=== PATIENT | female | born 2000 | race Caucasian/White ===

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

== ENCOUNTER 2019-03-19 10:35 | Emergency (ER) | payer BC, OTHER ==
--- NOTE | 2019-03-19 11:13 | EDM.PDOC ---
ED HPI GENERAL MEDICAL PROBLEM - General Chief Complaint: Skin Complaint Stated Complaint: INFECTION Time Seen by Provider: 03/19/19 10:53 Source of Information: Reports: Patient History Limitations: Reports: No Limitations - History of Present Illness INITIAL COMMENTS - FREE TEXT/NARRATIVE: HISTORY AND PHYSICAL: History of present illness: Patient is a 18-year-old female who presents to the ED today with concern of right big toe pain after ingrown toenail removal from Dr. Pereyra, podiatry that was done 1 week ago. Patient states she has taken 4 doses of Augmentin that was given by Dr. Pereyra 2 days ago at an appointment with him. Patient states yesterday she had some drainage from the toe but she is not having any drainage today. Patient states the toe is more painful and bothersome to her over the past few days. She denies any associated symptoms or any other symptoms or concerns. Patient denies fever, chills, chest pain, shortness of breath, or cough. Denies headache, neck stiff ness, change in vision, syncope, or near syncope. Denies nausea, vomiting, abdominal pain, diarrhea, constipation, or dysuria. Has not noted any blood in urine or stool. Patient has been eating and drinking appropriately. Review of systems: As per history of present illness and below otherwise all systems reviewed and negative. Past medical history: As per history of present illness and as reviewed below otherwise noncontributory. Surgical history: As per history of present illness and as reviewed below otherwise noncontributory. Social history: See social history for further information Family history: As per history of present illness and as reviewed below otherwise noncontributory. Physical exam: General: Patient is alert, oriented, and in no acute distress. Patient sitting comfortably on exam table. HEENT: Atraumatic, normocephalic, pupils equal and reactive bilaterally, negative for conjunctival pallor or scleral icterus, mucous membranes moist, TMs normal bilaterally, throat clear, neck supple, nontender, trachea midline. No drooling or trismus noted. No meningeal signs. No hot potato voice noted. Lungs: Clear to auscultation, breath sounds equal bilaterally, chest nontender. Heart: S1S2, regular rate and rhythm without overt murmur Abdomen: Soft, nondistended, nontender. Negative for masses or hepatosplenomegaly. Negative for costovertebral tenderness. Pelvis: Stable nontender. Genitourinary: Deferred. Rectal: Deferred. Skin: Intact, warm, dry. No lesions or rashes noted. Extremities: Negative for cords or calf pain. Neurovascular unremarkable. There is a small scabbed over area on the medial side of the right big toenail with a mild amount of erythema surrounding this area. There is no purulent drainage or pus coming from the wound and not warm to the touch. Patient has full range of motion of complete digits of the right lower extremity with capillary refill less than 2 seconds. Neuro: Awake, alert, oriented. Cranial nerves II through XII unremarkable. Cerebellum unremarkable. Motor and sensory unremarkable throughout. Exam nonfocal. Notes: I did call and speak to Dr. Sanchez who said that he saw patient 2 days ago in his clinic and it looked like she had a slight infection starting of her toe. Dr. Sanchez states he started her on Augmentin at that time. Dr. Sanchez states he removed the ingrown part of her toe and applied acid to the area to prevent regrowth of the nail. Voices understanding and is agreeable to plan of care. Denies any further questions or concerns at this time. Diagnostics: CBC, CMP, Foot XR Therapeutics: Toradol, Rocephin Prescription: Bactrim DS, Diclofenac Impression: Toe pain, right big toe H/O toenail removal, right big toe Plan: 1. You can alternate ibuprofen and Tylenol as directed for pain and discomfort. Take medication as prescribed. Stop Augmentin that has been prescribed to you prior. 2. Follow-up with Dr. Sanchez as scheduled and as discussed. Return to the ED as needed and as discussed. Definitive disposition and diagnosis as appropriate pending reevaluation and review of above. right great toe Pain Score (Numeric/FACES): 6 - Related Data Allergies Allergy/AdvReac Type Severity Reaction Status Date / Time No Known Allergies Allergy Verified 03/19/19 10:47 Home Meds: Home Meds Norethindrone AC-Eth Estradiol [Microgestin 21 1-20 Tablet] 1 tab PO DAILY 07/19 [History] Amoxicillin 500 mg PO BID 03/19/19 [History] Past Medical History - Past Health History Medical/Surgical History: Denies Medical/Surgical History Other HEENT History: wears glasses Cardiovascular History: Reports: None Respiratory History: Reports: None Gastrointestinal History: Reports: None Genitourinary History: Reports: None 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 Musculoskeletal History: Reports: None Neurological History: Reports: Headaches, Chronic Psychiatric History: Reports: None Endocrine/Metabolic History: Reports: None Hematologic History: Reports: None Immunologic History: Reports: None Oncologic (Cancer) History: Reports: None Dermatologic History: Reports: None - Past Surgical History Head Surgeries/Procedures: Reports: None HEENT Surgical History: Reports: Adenoidectomy, Tonsillectomy Cardiovascular Surgical History: Reports: None GI Surgical History: Reports: None Female Surgical History: Reports: None Endocrine Surgical History: Reports: None Musculoskeletal Surgical History: Reports: None Oncologic Surgical History: Reports: None Dermatological Surgical History: Reports: None Social & Family History - Family History Family Medical History: Noncontributory - Tobacco Use Smoking Status *Q: Current Every Day Smoker Years of Tobacco use: 1 Packs/Tins Daily: 0.5 - Caffeine Use Caffeine Use: Reports: Soda - Recreational Drug Use Recreational Drug Use: No ED ROS GENERAL - Review of Systems Review Of Systems: ROS reveals no pertinent complaints other than HPI. ED EXAM, SKIN/RASH Exam: See Below (See dictation) Course - Vital Signs Last Recorded V/S: Last Vital Signs Temp 97.0 F 03/19/19 10:47 Pulse 91 03/19/19 10:47 Resp 18 03/19/19 10:47 BP 147/81 H 03/19/19 10:47 Pulse Ox 100 03/19/19 10:47 - Orders/Labs/Meds Labs: Laboratory Tests 03/19/19 03/19/19 Range/Units 11:09 11:09 WBC 7.14 (4.0-11.0) K/uL RBC 4.26 L (4.30-5.90) M/uL Hgb 12.0 (12.0-16.0) g/dL Hct 36.7 (36.0-46.0) % MCV 86.2 (80.0-98.0) fL MCH 28.2 (27.0-32.0) pg MCHC 32.7 (31.0-37.0) g/dL RDW Std Deviation 43.3 (28.0-62.0) fl RDW Coeff of Gracie 14 (11.0-15.0) % Plt Count 240 (150-400) K/uL MPV 10.30 (7.40-12.00) fL Neut % (Auto) 68.7 (48.0-80.0) % Lymph % (Auto) 21.3 (16.0-40.0) % Griggs % (Auto) 4.2 (0.0-15.0) % Eos % (Auto) 5.7 (0.0-7.0) % Baso % (Auto) 0.1 (0.0-1.5) % Neut # (Auto) 4.9 (1.4-5.7) K/uL Lymph # (Auto) 1.5 (0.6-2.4) K/uL Griggs # (Auto) 0.3 (0.0-0.8) K/uL Eos # (Auto) 0.4 (0.0-0.7) K/uL Baso # (Auto) 0.0 (0.0-0.1) K/uL Nucleated RBC % 0.0 /100WBC Nucleated RBCs # 0 K/uL Sodium 141 (136-145) mmol/L Potassium 4.0 (3.5-5.1) mmol/L Chloride 106 (98-107) mmol/L Carbon Dioxide 20.9 L (21.0-32.0) mmol/L BUN 7 (7.0-18.0) mg/dL Creatinine 1.1 H (0.6-1.0) mg/dL Est Cr Clr Drug Dosing 74.02 mL/min Estimated GFR (MDRD) > 60.0 ml/min Glucose 90 (74-106) mg/dL Calcium 9.2 (8.5-10.1) mg/dL Total Bilirubin 0.3 (0.2-1.0) mg/dL AST 20 (15-37) IU/L ALT 27 (14-63) IU/L Alkaline Phosphatase 67 (46-116) U/L Total Protein 7.7 (6.4-8.2) g/dL Albumin 3.7 (3.4-5.0) g/dL Globulin 4.0 (2.6-4.0) g/dL Albumin/Globulin Ratio 0.9 (0.9-1.6) Meds: Medications Discontinued Medications Generic Name Dose Route Start Last Admin Trade Name Freq PRVeronica Reason Stop Dose Admin Ceftriaxone Sodium 1 gm 03/19/19 11:24 03/19/19 11:36 Rocephin IM 03/19/19 11:25 1 gm ONETIME ONE Administration Lidocaine HCl Confirm 03/19/19 11:35 Xylocaine-Mpf 1% Administered 03/19/19 11:36 Dose 2 mls @ as directed .ROUTE .STK-MED ONE Ketorolac Tromethamine 60 mg 03/19/19 11:15 03/19/19 11:28 Toradol IM 03/19/19 11:16 60 mg ONETIME ONE Administration Lidocaine HCl 2 ml 03/19/19 11:33 03/19/19 11:42 Xylocaine-Mpf 1% INJECT 03/19/19 11:34 2 ml ONETIME ONE Administration Departure - Departure Time of Disposition: 11:54 Disposition: Home, Self-Care 01 Clinical Impression: History of ingrowing nail Toe pain Qualifiers: Laterality: right Qualified Code(s): M79.674 - Pain in right toe(s) - Discharge Information Referrals: Kailash De Guzman MD [Primary Care Provider] - Forms: ED Department Discharge Additional Instructions: The following information is given to patients seen in the emergency department who are being discharged to home. This information is to outline your options for follow-up care. We provide all patients seen in our emergency department with a follow-up referral. The need for follow-up, as well as the timing and circumstances, are variable depending upon the specifics of your emergency department visit. If you don't have a primary care physician on staff, we will provide you with a referral. We always advise you to contact your personal physician following an emergency department visit to inform them of the circumstance of the visit and for follow-up with them and/or the need for any referrals to a consulting specialist. The emergency department will also refer you to a specialist when appropriate. This referral assures that you have the opportunity for follow-up care with a specialist. All of these measure are taken in an effort to provide you with optimal care, which includes your follow-up. Under all circumstances we always encourage you to contact your private physician who remains a resource for coordinating your care. When calling for follow-up care, please make the office aware that this follow-up is from your recent emergency room visit. If for any reason you are refused follow-up, please contact the [facility] Emergency Department at and asked to speak to the emergency department charge nurse. [facility] Primary [facility] [address] [address] [address] [facility], [address] [place] [address] 1. You can alternate ibuprofen and Tylenol as directed for pain and discomfort. Take medication as prescribed. Stop Augmentin that has been prescribed to you prior. 2. Follow-up with Dr. Sanchez as scheduled and as discussed. Return to the ED as needed and as discussed.
[2019-03-19] MEDS ORDERED: Ketorolac 60 MG/2 ML SDV IM ONE (11:15)
[2019-03-19] MEDS ORDERED: cefTRIAXone 1 GM Vial IM ONE (11:24)
--- NOTE | 2019-03-19 11:27 | CR ---
HISTORY: Right great toe infection. TECHNIQUE: Two views of the right foot. COMPARISON: No prior. FINDINGS: There is no acute fracture. No bony destructive change to suggest osteomyelitis radiographically. No radiopaque foreign body or soft tissue gas. Type 2 navicular accessory ossification center is present. Joint spaces maintained. IMPRESSION: No bony destructive change to radiographically suggest osteomyelitis. No soft tissue gas or radiopaque foreign body. Dictated by Michael Alcazar MD @ 03/19/2019 11:26:32 AM Dictated by: Michael Alcazar MD @ 03/19/2019 11:26:36 (Electronically Signed)
[2019-03-19] MEDS ORDERED: Lidocaine 1% PF 2 ML SDV INJECT ONE (11:33)
[2019-03-19] MEDS ORDERED: Lidocaine 1% 2 ML ONE (11:35)
[2019-03-19 11:43] LABS: BLOOD UREA NITROGEN,BUN 7 mg/dL (7.0-18.0); CARBON DIOXIDE,CO2 20.9 mmol/L (21.0-32.0); CHLORIDE,CL 106 mmol/L (98-107); GLUCOSE RANDOM 90 mg/dL (74-106); SODIUM,NA 141 mmol/L (136-145)
[2019-03-19 12:06] VITALS: BP 114/59; PULSE 80
== END 2019-03-19 12:04 | disposition home or self-care (01) ==
LOC: MW.ED 10:35
DX: M79.674 Pain in right toe(s) (principal); F17.210 Nicotine dependence, cigarettes, uncomplicated; Z87.2 Personal history of diseases of the skin and subcutaneous tissue
CPT/HCPCS: 36415; 73620; 80053; 85025; 96372; 96374; 99284; J0696; J1885; J2001

== ENCOUNTER 2019-06-08 18:04 | Emergency (ER) | payer OTHER ==
[2019-06-08 18:17] VITALS: BP 114/78; PULSE 103
--- NOTE | 2019-06-08 18:22 | EDM.PDOC ---
ED HPI GENERAL MEDICAL PROBLEM - General Chief Complaint: General Stated Complaint: SICK Time Seen by Provider: 06/08/19 18:22 Source of Information: Reports: Patient History Limitations: Reports: No Limitations - History of Present Illness INITIAL COMMENTS - FREE TEXT/NARRATIVE: HISTORY AND PHYSICAL: History of present illness: Patient is a 18-year-old female presents to the ED with complaint of right shoulder and right knee pain. She states she inured her right shoulder while boxing a couple of weeks ago. She states she has seen Dr. Rivera and is suppose to get an MRI. She states she saw a chiropractor today and her shoulder pain is worse. She report she developed right knee pain just this afternoon. She denies injury to the knee. She states her toes this afternoon turned white, then red before return to normal color. She is taking tylenol #3 but states she does not feel well when she takes this. Review of systems: As per history of present illness and below otherwise all systems reviewed and negative. Past medical history: As per history of present illness and as reviewed below otherwise noncontributory. Surgical history: As per history of present illness and as reviewed below otherwise noncontributory. Social history: No reported history of drug or alcohol abuse. Family history: As per history of present illness and as reviewed below otherwise noncontributory. Physical exam: General: Patient sitting comfortably in no acute distress and nontoxic appearing HEENT: Atraumatic, normocephalic, pupils reactive, negative for conjunctival pallor or scleral icterus, mucous membranes moist, throat clear, neck supple, nontender, trachea midline. No meningeal signs. Lungs: Clear to auscultation, breath sounds equal bilaterally, chest nontender. Heart: S1S2, regular, negative for clicks, rubs, or overt murmur. Abdomen: Soft, nondistended, nontender. Negative for masses or hepatosplenomegaly. Negative for costovertebral tenderness. No rigidity, rebound , guarding. Pelvis: Stable nontender. Genitourinary: Deferred. Rectal: Deferred. Extremities: Pain to palpation along right supraspinatus and right anterior shoulder. Pain to palpation of right anterior knee. ROM normal. Atraumatic, negative for cords or calf pain. Neurovascular unremarkable. Neuro: Awake, alert, oriented. Cranial nerves II through XII unremarkable. Cerebellum unremarkable. Motor and sensory unremarkable throughout. Exam nonfocal. Notes: Diagnostics: none Therapeutics: none Prescriptions: Diclofenac Impression: Right shoulder pain, right knee pain Plan: Take diclofenac as instructed Follow up with orthopedics, please call the number provided to schedule an appointment Return to ED as needed as discussed Definitive disposition and diagnosis as appropriate pending reevaluation and review of above. Generalized Pain Score (Numeric/FACES): 8 - Related Data Allergies Allergy/AdvReac Type Severity Reaction Status Date / Time No Known Allergies Allergy Verified 06/08/19 18:13 Home Meds: Home Meds Norethindrone AC-Eth Estradiol [Microgestin 21 1-20 Tablet] 1 tab PO DAILY 07/19 [History] Acetaminophen with Codeine [Tylenol with Codeine #3 Tablet] 1 each PO ASDIRECTED PRN 06/08/19 [History] Diclofenac Sodium [Voltaren] 75 mg PO BIDMEALS #20 tab.cr 06/08/19 [Rx] Past Medical History - Past Health History Medical/Surgical History: Denies Medical/Surgical History Other HEENT History: wears glasses Cardiovascular History: Reports: None Respiratory History: Reports: None Gastrointestinal History: Reports: None Genitourinary History: Reports: None 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 Musculoskeletal History: Reports: None Neurological History: Reports: Headaches, Chronic Psychiatric History: Reports: None Endocrine/Metabolic History: Reports: None Hematologic History: Reports: None Immunologic History: Reports: None Oncologic (Cancer) History: Reports: None Dermatologic History: Reports: None - Infectious Disease History Infectious Disease History: Reports: None - Past Surgical History Head Surgeries/Procedures: Reports: None HEENT Surgical History: Reports: Adenoidectomy, Oral Surgery, Tonsillectomy Cardiovascular Surgical History: Reports: None GI Surgical History: Reports: None Female Surgical History: Reports: None Endocrine Surgical History: Reports: None Musculoskeletal Surgical History: Reports: None Oncologic Surgical History: Reports: None Dermatological Surgical History: Reports: None Social & Family History - Family History Family Medical History: Noncontributory - Caffeine Use Caffeine Use: Reports: Energy Drinks - Recreational Drug Use Recreational Drug Use: No ED ROS GENERAL - Review of Systems Review Of Systems: Comprehensive ROS is negative, except as noted in HPI. ED EXAM, GENERAL - Physical Exam Exam: See Below (see dictation) Course - Vital Signs Last Recorded V/S: Last Vital Signs Temp 98.3 F 06/08/19 18:14 Pulse 103 H 06/08/19 18:14 Resp 18 06/08/19 18:14 BP 114/78 06/08/19 18:14 Pulse Ox 99 06/08/19 18:14 Departure - Departure Time of Disposition: 18:40 Disposition: Home, Self-Care 01 Condition: Good Clinical Impression: Right shoulder pain, Right knee pain - Discharge Information Prescriptions: Diclofenac Sodium [Voltaren] 75 mg PO BIDMEALS #20 tab.cr Instructions: Shoulder Pain, [id number], Knee Pain, Adult, [id number] Referrals: Kailash De Guzman MD [Primary Care Provider] - Forms: ED Department Discharge Additional Instructions: The following information is given to patients seen in the emergency department who are being discharged to home. This information is to outline your options for follow-up care. We provide all patients seen in our emergency department with a follow-up referral. The need for follow-up, as well as the timing and circumstances, are variable depending upon the specifics of your emergency department visit. If you don't have a primary care physician on staff, we will provide you with a referral. We always advise you to contact your personal physician following an emergency department visit to inform them of the circumstance of the visit and for follow-up with them and/or the need for any referrals to a consulting specialist. The emergency department will also refer you to a specialist when appropriate. This referral assures that you have the opportunity for follow-up care with a specialist. All of these measure are taken in an effort to provide you with optimal care, which includes your follow-up. Under all circumstances we always encourage you to contact your private physician who remains a resource for coordinating your care. When calling for follow-up care, please make the office aware that this follow-up is from your recent emergency room visit. If for any reason you are refused follow-up, please contact the [facility] Emergency Department at and asked to speak to the emergency department charge nurse. [facility] Primary [facility] [address] [place] [id number] [facility] [address] [place] [address] [facility] Specialty Care - Orthopedic Clinic Professional Building [address] [place] [address], [address] [place] [address] Take diclofenac as instructed Follow up with orthopedics, please call the number provided to schedule an appointment Return to ED as needed as discussed Sepsis Event Note - Evaluation Sepsis Screening Result: No Definite Risk - Focused Exam Vital Signs: Vital Signs Temp Pulse Resp BP Pulse Ox 06/08/19 18:14 98.3 F 103 H 18 114/78 99 Date Exam was Performed: 06/08/19 Time Exam was Performed: 18:49
== END 2019-06-08 18:53 | disposition home or self-care (01) ==
LOC: MW.ED 18:04
DX: M25.511 Pain in right shoulder (principal); M25.561 Pain in right knee; Z98.890 Other specified postprocedural states
CPT/HCPCS: 99283

== ENCOUNTER 2020-01-18 10:53 | Day surgery (SDC) | payer OTHER ==
[~2020-01-18 10:53] MED LIST changes: -Bupivacaine 0.25%/EPINEPHrine 1:200,000 10 ML SDV INJECT ONE; +Lactated Ringers 1,000 ML IV SCH; +Midazolam 1 MG/ML 2 ML SDV ONE; +Propofol 200 MG/20 ML SDV ONE; +Sodium Chloride 0.9% 10 ML SDV IV PRN; +Sodium Chloride 0.9% 10 ML Syringe FLUSH PRN; +Sodium Chloride 0.9% 2.5 ML Syringe FLUSH PRN; +fentaNYL 100 MCG/2 ML SDV ONE
--- NOTE | 2020-01-18 11:40 | PCM.PREANE ---
Preanesthetic Assessment - Anesthesia/Transfusion/Family Hx Anesthesia History: Prior Anesthesia Without Reaction Family History of Anesthesia Reaction: No Transfusion History: No Prior Transfusion(s) Intubation History: Unknown - Review of Systems General: No Symptoms Pulmonary: No Symptoms Cardiovascular: No Symptoms Gastrointestinal: Abdominal Pain (epigastric), Hematochezia (intermittent) Neurological: No Symptoms Other: Reports: None - Physical Assessment Height: 5 ft 5 in Weight: 78.018 kg ASA Class: 2 Mental Status: Alert & Oriented x3 Airway Class: Mallampati = 2 Dentition: Reports: Normal Dentition Thyro-Mental Finger Breadths: 3 Mouth Opening Finger Breadths: 3 ROM/Head Extension: Full Lungs: Clear to Auscultation, Normal Respiratory Effort Cardiovascular: Regular Rate, Regular Rhythm - Lab Values: Laboratory Last Values Urine HCG, Qual NEGATIVE (NEGATIVE) 01/18/20 11:10 - Allergies Allergies/Adverse Reactions: Allergies Allergy/AdvReac Type Severity Reaction Status Date / Time No Known Allergies Allergy Verified 01/11/20 12:17 - Blood Blood Available: No - Anesthesia Plan Pre-Op Medication Ordered: None - Acknowledgements Anesthesia Type Planned: MAC Pt an Appropriate Candidate for the Planned Anesthesia: Yes Alternatives and Risks of Anesthesia Discussed w Pt/Guardian: Yes Pt/Guardian Understands and Agrees with Anesthesia Plan: Yes PreAnesthesia Questionnaire - Past Health History Medical/Surgical History: Denies Medical/Surgical History HEENT History: Reports: Other (See Below) Other HEENT History: wears glasses Cardiovascular History: Reports: None Respiratory History: Reports: None Gastrointestinal History: Reports: None Genitourinary History: Reports: None 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 Musculoskeletal History: Reports: None Other Musculoskeletal History: hx of fx right hand Neurological History: Reports: Headaches, Chronic Psychiatric History: Reports: None Endocrine/Metabolic History: Reports: None Hematologic History: Reports: None Immunologic History: Reports: None Oncologic (Cancer) History: Reports: None Dermatologic History: Reports: None - Infectious Disease History Infectious Disease History: Reports: None - Past Surgical History HEENT Surgical History: Reports: Adenoidectomy, Oral Surgery, Tonsillectomy Musculoskeletal Surgical History: Reports: None - SUBSTANCE USE Smoking Status *Q: Current Every Day Smoker Tobacco Use Within Last Twelve Months: Vaping Recreational Drug Use History: No - HOME MEDS Home Medications: Home Meds norethindrone ac-eth estradioL [Microgestin 21 1-20 Tablet] 1 tab PO DAILY 07/19/16 [History] Melatonin 5 mg PO BEDTIME 01/11/20 [History] - CURRENT (IN HOUSE) MEDS Current Meds: Current Medications Lactated Ringer's (Ringers, Lactated) 1,000 mls @ 125 mls/hr IV ASDIRECTED KARLY Sodium Chloride (Saline Flush) 10 ml FLUSH ASDIRECTED PRN PRN Reason: Keep Vein Open Sodium Chloride (Saline Flush) 2.5 ml FLUSH ASDIRECTED PRN PRN Reason: Keep Vein Open Sodium Chloride (Normal Saline) 10 ml IV ASDIRECTED PRN PRN Reason: IV Use Discontinued Medications Fentanyl (Sublimaze) Confirm Administered Dose 100 mcg .ROUTE .STK-MED ONE Stop: 01/18/20 07:36 Lidocaine HCl (Xylocaine-Mpf 1%) Confirm Administered Dose 5 ml .ROUTE .STK-MED ONE Stop: 01/18/20 07:36 Midazolam HCl (Versed 1 Mg/Ml) Confirm Administered Dose 2 mg .ROUTE .STK-MED ONE Stop: 01/18/20 07:36 Propofol (Diprivan 20 Ml) Confirm Administered Dose 200 mg .ROUTE .STK-MED ONE Stop: 01/18/20 07:36
[2020-01-18 13:51] VITALS: BP 123/80; PULSE 89
--- NOTE | 2020-01-18 13:56 | PCM.POSTAN ---
POST ANESTHESIA ASSESSMENT - MENTAL STATUS Mental Status: Alert, Oriented - VITAL SIGNS Vital Signs: Last Vital Signs Temp 36.7 C 01/18/20 13:39 Pulse 89 01/18/20 13:50 Resp 15 01/18/20 13:50 BP 123/80 01/18/20 13:50 Pulse Ox 97 01/18/20 13:50 - RESPIRATORY Respiratory Status: Respiratory Rate WNL, Airway Patent, O2 Saturation Stable - CARDIOVASCULAR CV Status: Pulse Rate WNL, Blood Pressure Stable - GASTROINTESTINAL GI Status: No Symptoms - PAIN Pain Score: 0 - POST OP HYDRATION Hydration Status: Adequate & Stable - OBSERVATIONS Free Text/Narrative:: No anesthesia problems
--- NOTE | 2020-01-18 14:11 | PCM48HPAN ---
Post Anesthesia Note - EVALUATION WITHIN 48HRS OF ANESTHETIC Vital Signs in Normal Range: Yes Patient Participated in Evaluation: Yes Respiratory Function Stable: Yes Airway Patent: Yes Cardiovascular Function Stable: Yes Hydration Status Stable: Yes Pain Control Satisfactory: Yes Nausea and Vomiting Control Satisfactory: Yes Mental Status Recovered: Yes Vital Signs: Last Vital Signs Temp 36.7 C 01/18/20 13:39 Pulse 89 01/18/20 13:50 Resp 15 01/18/20 13:50 BP 123/80 01/18/20 13:50 Pulse Ox 97 01/18/20 13:50 - COMMENTS/OBSERVATIONS Free Text/Narrative:: No anesthesia problems
--- NOTE | 2020-01-18 19:23 | OR ---
SURGEON: EMILY MUNOZ MD DATE OF PROCEDURE: 01/18/2020 PREOPERATIVE DIAGNOSIS: Abdominal pain. POSTOPERATIVE DIAGNOSIS: Abdominal pain. PROCEDURE PERFORMED: Diagnostic esophagogastroduodenoscopy with biopsies. PRIMARY SURGEON: Emily Munoz MD ANESTHESIA: MAC. INSTRUMENT USED: Olympus endoscope. EXTENT OF EXAM: To the second portion of duodenum. PREPARATION: Good. LIMITATIONS: None. INDICATIONS: The patient is a 19-year-old female who has been having postprandial abdominal pain. Recent HIDA scan showed a slightly lower than normal ejection fraction. However, the patient's symptoms did not seem to correlate 100% with biliary dyskinesia. The decision was made to first undergo an EGD to rule out any upper GI pathology prior to performing a cholecystectomy. The patient and I discussed the procedure; expected perioperative course; and risks including bleeding, infection, or perforation. The patient verbalized understanding and wishes to proceed. PROCEDURE IN DETAIL: The patient was brought into the endoscopy suite and placed in a beach chair position. A time-out was completed verifying the patient's name, age, date of , allergies, and procedure to be performed. A bite block was placed in the patient's mouth. Monitored anesthesia care was induced and continuous oxygen was provided via nasal cannula throughout the procedure. After adequate sedation was achieved, a well-lubricated endoscope was placed in the patient's mouth and advanced under direct visualization to the second portion of duodenum. This appeared normal and a photograph was taken. The scope was then fully withdrawn while examining the color, texture, anatomy, and integrity of the mucosa of the upper GI tract. The duodenum grossly appeared normal. A biopsy was taken in the first portion of the duodenum and sent to pathology. The scope was brought into the stomach and a photograph was taken of the pylorus and GE junction. Both appeared grossly normal. Biopsies were taken of the gastric antrum, body, and fundus and sent for histologic review and H. pylori testing. There was no evidence of gross inflammation or ulceration along the gastric mucosa. The scope was then brought into the distal esophagus. The Z-line appeared normal and a photograph was taken. The distal esophageal mucosa appeared healthy with no signs of esophagitis. A biopsy was taken 1 cm above the Z-line and sent to pathology, labeled as esophagus. The remainder of the esophageal mucosa was free of pathology. The scope was removed and the procedure terminated. The patient tolerated it well and was transferred to the PACU in stable condition. ENDOSCOPIC DIAGNOSIS: Abdominal pain. RECOMMENDATIONS: We will follow up on the results of our biopsies this week. If these are grossly normal, we will proceed with a laparoscopic cholecystectomy for biliary dyskinesia. MILADIS ARTIS /[id number]
== END 2020-01-18 14:20 | disposition home or self-care (01) ==
LOC: MW.SDS 10:53
PROVIDERS: ATTEND Surgery
DX: K29.00 Acute gastritis without bleeding (principal); K29.80 Duodenitis without bleeding; K29.50 Unspecified chronic gastritis without bleeding; G89.29 Other chronic pain; K21.0 Gastro-esophageal reflux disease with esophagitis; F17.290 Nicotine dependence, other tobacco product, uncomplicated; Z79.899 Other long term (current) drug therapy
CPT/HCPCS: 43239; 81025; 88305; 88312; J2001; J2250; J2704; J3010; J7120; 00731

== ENCOUNTER 2020-01-27 07:56 | Day surgery (SDC) | payer OTHER ==
[~2020-01-27 07:56] MED LIST changes: +Dexamethasone 4 MG/ML 5 ML MDV ONE; +HYDROmorphone 2 MG/ML Syringe ONE; +Ketamine 500 mg/10 ML MDV ONE; +Ketorolac 30 MG/ML SDV ONE; +Lidocaine 2% 5 ML SDV ONE; +Ondansetron 4 MG/2 ML SDV ONE; +Rocuronium Bromide 50 MG/5 ML Syringe ONE; +Sugammadex Sodium 200 MG/2 ML VIAL ONE; +ceFAZolin 2 GM in Premix Bag 1 BAG IV ONE; -fentaNYL 100 MCG/2 ML SDV ONE; +fentaNYL 250 MCG/5 ML SDV ONE
--- NOTE | 2020-01-27 08:20 | PCM.PREANE ---
Preanesthetic Assessment - Anesthesia/Transfusion/Family Hx Anesthesia History: Prior Anesthesia Without Reaction Family History of Anesthesia Reaction: No Transfusion History: No Prior Transfusion(s) Intubation History: Unknown - Review of Systems General: No Symptoms Pulmonary: No Symptoms Cardiovascular: No Symptoms Gastrointestinal: Abdominal Pain Neurological: No Symptoms Other: Reports: None - Physical Assessment Height: 5 ft 5 in Weight: 78.018 kg ASA Class: 2 Mental Status: Alert & Oriented x3 Airway Class: Mallampati = 2 Dentition: Reports: Normal Dentition Thyro-Mental Finger Breadths: 3 Mouth Opening Finger Breadths: 3 ROM/Head Extension: Full Lungs: Clear to Auscultation, Normal Respiratory Effort Cardiovascular: Regular Rate, Regular Rhythm - Allergies Allergies/Adverse Reactions: Allergies Allergy/AdvReac Type Severity Reaction Status Date / Time No Known Allergies Allergy Verified 01/21/20 12:38 - Blood Blood Available: No - Anesthesia Plan Pre-Op Medication Ordered: None - Acknowledgements Anesthesia Type Planned: General Anesthesia Pt an Appropriate Candidate for the Planned Anesthesia: Yes Alternatives and Risks of Anesthesia Discussed w Pt/Guardian: Yes Pt/Guardian Understands and Agrees with Anesthesia Plan: Yes PreAnesthesia Questionnaire - Past Health History Medical/Surgical History: Denies Medical/Surgical History HEENT History: Reports: Other (See Below) Other HEENT History: wears glasses Cardiovascular History: Reports: None Respiratory History: Reports: None Gastrointestinal History: Reports: Other (See Below) (cholecystitis) Genitourinary History: Reports: None 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: 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: 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 Musculoskeletal History: Reports: None Other Musculoskeletal History: hx of fx right hand Neurological History: Reports: Headaches, Chronic Psychiatric History: Reports: None Endocrine/Metabolic History: Reports: None Hematologic History: Reports: None Immunologic History: Reports: None Oncologic (Cancer) History: Reports: None Dermatologic History: Reports: None - Infectious Disease History Infectious Disease History: Reports: None - Past Surgical History HEENT Surgical History: Reports: Tonsillectomy Other HEENT Surgeries/Procedures: wisdom teeth removed GI Surgical History: Reports: EGD (last week) Musculoskeletal Surgical History: Reports: None Other Musculoskeletal Surgeries/Procedures:: hx of ORIF right hand- pins later removed - SUBSTANCE USE Smoking Status *Q: Current Every Day Smoker Tobacco Use Within Last Twelve Months: Vaping Recreational Drug Use History: No - HOME MEDS Home Medications: Home Meds norethindrone ac-eth estradioL [Microgestin 21 1-20 Tablet] 1 tab PO DAILY 07/19/16 [History] Melatonin 5 mg PO BEDTIME 01/11/20 [History] - CURRENT (IN HOUSE) MEDS Current Meds: Current Medications Lactated Ringer's (Ringers, Lactated) 1,000 mls @ 125 mls/hr IV ASDIRECTED KARLY Sodium Chloride (Saline Flush) 2.5 ml FLUSH ASDIRECTED PRN PRN Reason: Keep Vein Open Sodium Chloride (Normal Saline) 10 ml IV ASDIRECTED PRN PRN Reason: IV Use Sodium Chloride (Saline Flush) 10 ml FLUSH ASDIRECTED PRN PRN Reason: Keep Vein Open Discontinued Medications Dexamethasone (Dexamethasone) Confirm Administered Dose 20 mg .ROUTE .STK-MED ONE Stop: 01/27/20 07:25 Fentanyl (Sublimaze) Confirm Administered Dose 250 mcg .ROUTE .STK-MED ONE Stop: 01/27/20 07:26 Hydromorphone HCl (Dilaudid) Confirm Administered Dose 2 mg .ROUTE .STK-MED ONE Stop: 01/27/20 07:26 Cefazolin Sodium/Dextrose 2 gm (/ Premix) 50 mls @ 100 mls/hr IV ONETIME ONE Stop: 01/24/20 09:19 Acetaminophen (Ofirmev) Confirm Administered Dose 100 mls @ as directed .ROUTE .STK-MED ONE Stop: 01/27/20 07:36 Ketamine HCl (Ketalar) Confirm Administered Dose 500 mg .ROUTE .STK-MED ONE Stop: 01/27/20 07:26 Ketorolac Tromethamine (Toradol) Confirm Administered Dose 30 mg .ROUTE .STK-MED ONE Stop: 01/27/20 07:25 Lidocaine (Xylocaine-Mpf 2%) Confirm Administered Dose 5 ml .ROUTE .STK-MED ONE Stop: 01/27/20 07:25 Midazolam HCl (Versed 1 Mg/Ml) Confirm Administered Dose 2 mg .ROUTE .STK-MED ONE Stop: 01/27/20 07:25 Ondansetron HCl (Zofran) Confirm Administered Dose 4 mg .ROUTE .STK-MED ONE Stop: 01/27/20 07:25 Propofol (Diprivan 20 Ml) Confirm Administered Dose 600 mg .ROUTE .STK-MED ONE Stop: 01/27/20 07:25 Rocuronium Dale (Rocuronium Dale) Confirm Administered Dose 50 mg .ROUTE .STK-MED ONE Stop: 01/27/20 07:25 Sugammadex Sodium (Bridion) Confirm Administered Dose 200 mg .ROUTE .STK-MED ONE Stop: 01/27/20 07:36
[2020-01-27] MEDS ORDERED: Bupivacaine 0.5% 30 ML SDV ONE (10:02)
[2020-01-27] MEDS ORDERED: ceFAZolin/Dextrose,Iso-Osmotic 2 GM/50 ML Duplex Bag IV ONE (10:05)
[2020-01-27] MEDS ORDERED: Propofol 200 MG/20 ML SDV ONE ×2 (10:42→11:11)
[2020-01-27] MEDS ORDERED: Rocuronium Bromide 50 MG/5 ML Syringe ONE (11:06)
[2020-01-27] MEDS ORDERED: Octyl 2-Cyanoacrylate 1 Tube ONE (11:18)
--- NOTE | 2020-01-27 11:48 | PCM.OPNOTE ---
- General Post-Op/Procedure Note Date of Surgery/Procedure: 01/27/20 Operative Procedure(s): Laparoscopic cholecystectomy Findings: Normal appearing gallbladder Pre Op Diagnosis: Biliary Dyskinesia Post-Op Diagnosis: same Anesthesia Technique: General ET Tube Primary Surgeon: Emily Munoz Fluid Replacement, Intraop: 800 Output, Urine Amount: 100 EBL in mLs: 5 Condition: Good
[2020-01-27] MEDS ORDERED: traMADol 50 MG Tab PO PRN (11:57)
[2020-01-27] MEDS ORDERED: Meperidine PF 25 MG/ML Syringe IVPUSH ONE (12:17)
[2020-01-27] MEDS ORDERED: Meperidine PF 25 MG/ML Syringe ONE (12:19)
--- NOTE | 2020-01-27 12:41 | PCM.POSTAN ---
POST ANESTHESIA ASSESSMENT - MENTAL STATUS Mental Status: Alert, Oriented - VITAL SIGNS Vital Signs: Last Vital Signs Temp 36.6 C 01/27/20 11:41 Pulse 84 01/27/20 12:27 Resp 11 L 01/27/20 12:27 BP 118/71 01/27/20 12:27 Pulse Ox 100 01/27/20 12:27 - RESPIRATORY Respiratory Status: Respiratory Rate WNL, Airway Patent, O2 Saturation Stable - CARDIOVASCULAR CV Status: Pulse Rate WNL, Blood Pressure Stable - GASTROINTESTINAL GI Status: No Symptoms - PAIN Pain Score: 0 - POST OP HYDRATION Hydration Status: Adequate & Stable - OBSERVATIONS Free Text/Narrative:: No anesthesia problems
[2020-01-27 13:09] VITALS: BP 109/59; PULSE 64
--- NOTE | 2020-01-27 13:48 | PCM48HPAN ---
Post Anesthesia Note - EVALUATION WITHIN 48HRS OF ANESTHETIC Vital Signs in Normal Range: Yes Patient Participated in Evaluation: Yes Respiratory Function Stable: Yes Airway Patent: Yes Cardiovascular Function Stable: Yes Hydration Status Stable: Yes Pain Control Satisfactory: Yes Nausea and Vomiting Control Satisfactory: Yes Mental Status Recovered: Yes Vital Signs: Last Vital Signs Temp 36.6 C 01/27/20 11:41 Pulse 64 01/27/20 13:05 Resp 16 01/27/20 13:05 BP 109/59 L 01/27/20 13:05 Pulse Ox 99 01/27/20 13:05 - COMMENTS/OBSERVATIONS Free Text/Narrative:: No anesthesia problems
--- NOTE | 2020-01-27 18:23 | OR ---
SURGEON: EMILY ZAMUDIO MD DATE OF PROCEDURE: 01/27/2020 PREOPERATIVE DIAGNOSIS: Biliary dyskinesia. POSTOPERATIVE DIAGNOSIS: Biliary dyskinesia. PROCEDURE PERFORMED: Laparoscopic cholecystectomy. PRIMARY SURGEON: Emily Zamudio MD OPERATOR PREFINISH: First moreno, Dr. Robby Cummins. ANESTHESIA: General endotracheal anesthesia. FLUIDS: 800 mL crystalloid. ESTIMATED BLOOD LOSS: 5 mL. URINE OUTPUT: 100 mL. FINDINGS: Normal-appearing gallbladder. COMPLICATIONS: None. INDICATIONS: The patient is a 19-year-old female who presented to my clinic with upper abdominal complaints. I performed an EGD on her last week that showed acute on chronic duodenitis and gastritis. She has been taking a PPI, but she underwent a HIDA scan that showed an ejection fraction of 27%. With the diagnosis of biliary dyskinesia, the patient, her mother, and I had a long discussion, and decided the best option was to remove the gallbladder as well. I explained the laparoscopic procedure. I explained that should I be unable to perform it laparoscopically, I will convert to open. We discussed the expected perioperative course as well as the risks including bleeding, infection, or damage to surrounding structures. She verbalized understanding and wishes to proceed. PROCEDURE IN DETAIL: The patient was brought into the OR and placed on the OR table in supine position. A time-out was completed verifying the patient's name, age, date of , allergies, and procedure to be performed. General endotracheal anesthesia was induced. The left arm was tucked to the patient's side and a Oliver catheter placed. The abdomen was prepped and draped in usual standard fashion. I anesthetized the infraumbilical fold with 0.5% Marcaine plain. An incision was made along this area using an 11 blade. Cautery was used to dissect down the level of subcutaneous fat. I bluntly dissected down to the fascia. The fascia was elevated with Gabrielle's and incised sharply with a curved Kumar scissors. Entry into the abdomen was palpated digitally. Stay sutures were placed on either side using 0 Vicryl sutures. A 12 mm Ernie trocar was inserted in the abdomen. The abdomen was insufflated and I inserted a 5 mm 30- degree scope. I inspected the area underneath my initial trocar placement and no damage to the surrounding structures was noted. The patient was placed into reverse Trendelenburg position. 5 mm trocars were placed in the following locations under direct visualization; one in the epigastric area, one in the right flank, and one 2 fingerbreadths below the right subcostal margin in the midclavicular line. The dome of the gallbladder was grasped with a grasper and elevated cranially. There were no adhesions to the gallbladder. The gallbladder itself did not appear inflamed. I identified the infundibulum and using blunt dissection as well as hook cautery, I dissected the cystic duct and artery away from the surrounding structures. I then carried my dissection 1/[address] up the cystic plate. Once my critical view was achieved, a photograph was taken. I doubly clipped and ligated the cystic duct and artery. Then using hook cautery, I took the remaining attachments of the gallbladder to the cystic plate down from proximal to distal. While doing this, a small rent was made in the gallbladder and bile was spilled. Once the gallbladder was removed from the cystic plate, it was placed in an Endo Catch bag. I then copiously irrigated the abdomen and suctioned out all of the fluid I could see. I inspected my operative field. There was no evidence of bile leakage and the area was hemostatic. A photograph was taken. The 5 mm trocars were then removed under direct visualization and the abdomen allowed to desufflate. The 12 mm trocar and the gallbladder were then removed through the infraumbilical port site. The gallbladder was then sent to Pathology. The fascia at the infraumbilical port site was closed with interrupted 0 Vicryl sutures. The skin was closed with running 4-0 Monocryl stitch. The 5 mm trocar sites were closed with interrupted 4-0 Monocryl sutures. Dermabond and sterile dressings were applied. The patient tolerated the procedure well and was transferred to the PACU in stable condition. All counts were complete and correct at the end of the case. MILADIS / STEFF /[id number]
== END 2020-01-27 14:40 | disposition home or self-care (01) ==
LOC: MW.SDS 07:56
PROVIDERS: ATTEND Surgery
DX: K81.1 Chronic cholecystitis (principal); K82.8 Other specified diseases of gallbladder; K29.50 Unspecified chronic gastritis without bleeding; K29.80 Duodenitis without bleeding; F17.290 Nicotine dependence, other tobacco product, uncomplicated
CPT/HCPCS: 47562; 81025; A9270; J0131; J0690; J1100; J1170; J1885; J2001; J2175; J2250; J2405; J2704; J3010; J3490; J7120; 00790; 88304

== ENCOUNTER 2021-02-13 09:25 | Emergency (ER) | payer BC, OTHER ==
--- NOTE | 2021-02-13 10:07 | EDM.PDOC ---
ED HPI GENERAL MEDICAL PROBLEM - General Chief Complaint: Back Pain or Injury Stated Complaint: LOWER BACK PAIN Time Seen by Provider: 02/13/21 09:39 Source of Information: Reports: Patient History Limitations: Reports: No Limitations - History of Present Illness INITIAL COMMENTS - FREE TEXT/NARRATIVE: HISTORY AND PHYSICAL: History of present illness: Patient is a 20-year-old female who presents to the emergency room with complaints of low back pain that started Friday upon awakening. She denies any injury, trauma or falls. She did attempt to get relief through the chirop ractor, pain is unchanged. Low lumbar back pain that radiates down both glutes and stops mid thigh. She has full range of motion although flexion and extension at the waist does cause increased pain. She denies any numbness, tingling, saddle paresthesia or weakness. Denies any urinary or fecal incontinence. Patient denies any fever, chills, headache, change in vision, syncope or near syncope. Denies any chest pain, shortness of breath or cough. Denies any GI or symptoms. No concern for or STI. No recent travel or sick contacts. Review of systems: As per history of present illness and below otherwise all systems reviewed and negative. Past medical history: As per history of present illness and as reviewed below otherwise noncontributory. Surgical history: As per history of present illness and as reviewed below otherwise noncontributory. Social history: See social history for further information Family history: As per history of present illness and as reviewed below otherwise noncontributory. Physical exam: General: Well developed and well nourished 20 year old female. Alert and orientated x 3. Nontoxic in appearance and in no acute distress. Vital signs are stable and have been reviewed by me. Nursing notes were reviewed. HEENT: Atraumatic, normocephalic, pupils equal and reactive bilaterally, negative for conjunctival pallor or scleral icterus, mucous membranes moist, TMs normal bilaterally, throat clear, neck supple, nontender, trachea midline. No drooling or trismus noted. No meningeal signs. No hot potato voice noted. Lungs: Clear to auscultation bilaterally. No wheezes, rales, or rhonchi. Chest nontender. Normal work of breathing, no accessory muscles used. Heart: S1S2, regular rate and rhythm without overt murmur, gallops, or rubs. No JVD. No peripheral edema Abdomen: Soft, nondistended, nontender. Normoactive bowel sounds. Negative for masses or costovertebral tenderness. C-spine/Back: No pinpoint vertebral tenderness upon palpation. No crepitus, step-offs or obvious deformities. Lumbar paraspinous muscular back pain bilaterally. Patient is ambulatory into the emergency room without difficulty or deficit. Able to rock back on heels and walk on toes. Denies any urinary or fecal incontinence. Denies any numbness, tingling or saddle paresthesia. No concerns of serious infection, fracture or cord compression, or cauda equina syndrome. Deep tendon reflexes brisk bilaterally. Skin: Intact, warm, dry. No lesions or rashes noted. Hematologic: No petechiae or purpra. Mucosa appropriate color and normal nail bed color and refill. Extremities: Atraumatic, moves all extremities per self without difficulty or deficits, negative for cords or calf pain. Neurovascular unremarkable. Neuro: Awake, alert, oriented. Cranial nerves II through XII unremarkable. Cerebellum unremarkable. Motor and sensory unremarkable throughout. Exam nonfocal. Psychiatric: Mood and affect are appropriate. Normal thought process. Answering questions appropriately. Please note that the patient was seen and evaluated during the 2019 SARS-CoV-2 novel coronavirus pandemic period. Community viral transmission is ongoing at time of this encounter and the emergency department is operating under pandemic response procedures. Medical Decision Making: Patient is a 20-year-old female who presents to the emergency room with complaints of low back pain. She states she does have a history of low back pain over the last few years and does have some bulging disks. Typically takes Tylenol and ibuprofen. She did go to the chiropractor yesterday but did not get any relief. We discussed doing imaging at this time. Due to no injury or trauma we decided against x-ray. This does sound muscular in nature with sciatica. Patient does have bacteria in her urine although is asymptomatic. She does not want antibiotics at this time, we will add a culture and see if she does require this moving forward. I have talked with the patient about today's findings, in addition to providing specific details for plan of care. Reassessment at the time of disposition demonstrates that the patient is in no acute distress. The patient is stable for discharge, counseling was provided and we discussed in great detail signs and symptoms that would prompt them to return to the Emergency Department. Medication, follow up and supportive care measures were reviewed and discussed. Voices understanding and is agreeable to plan of care. Denies any further questions or concerns at this time. Diagnostics: UA, HCGU Therapeutics: Toradol and Norflex Prescription: Flexeril and diclofenac Impression: Lumbago Plan: 1. The medication you received today does cause drowsiness, so do not drive for the remaining day 2. When resting please lay on a flat firm surface. Limit your immobility to prevent muscle stiffness. Get up to ambulate/move around/gentle stretching multiple times throughout the day. May alternate heat and ice to the painful areas 3. Tylenol as needed for back pain. Otherwise take the prescribed Flexeril and diclofenac as directed. Diclofenac is an anti-inflammatory so do not take any additional NSAIDs with this medication, such as ibuprofen or Aleve. Flexeril as a muscle relaxant, this medication may cause drowsiness a do not take it will driving her needing to be functioning outside of the house. 4. Please follow-up with your primary care provider as we discussed. Return to the ED as needed and as discussed. Definitive disposition and diagnosis as appropriate pending reevaluation and review of above. lower back Pain Score (Numeric/FACES): 9 - Related Data Allergies Allergy/AdvReac Type Severity Reaction Status Date / Time No Known Allergies Allergy Verified 02/13/21 10:29 Home Meds: Home Meds norethindrone ac-eth estradioL [Microgestin 21 1-20 Tablet] 1 tab PO DAILY 07/19/16 [History] Melatonin 5 mg PO BEDTIME 01/11/20 [History] Cyclobenzaprine [Flexeril] 10 mg PO TID PRN #21 tab 02/13/21 [Rx] Diclofenac Sodium [Voltaren] 75 mg PO BIDMEALS PRN #30 tab.cr 02/13/21 [Rx] Past Medical History - Past Health History Medical/Surgical History: Denies Medical/Surgical History HEENT History: Reports: Other (See Below) Other HEENT History: wears glasses Cardiovascular History: Reports: None Respiratory History: Reports: None Gastrointestinal History: Reports: Other (See Below) (cholecystitis) Genitourinary History: Reports: None SPORTS OFFICIAL History: Reports: None Musculoskeletal History: Reports: Back Pain, Chronic, Fracture Other Musculoskeletal History: hx of fx right hand Neurological History: Reports: Concussion Psychiatric History: Reports: None Endocrine/Metabolic History: Reports: None Hematologic History: Reports: None Immunologic History: Reports: None Oncologic (Cancer) History: Reports: None Dermatologic History: Reports: None - Infectious Disease History Infectious Disease History: Reports: None - Past Surgical History Other HEENT Surgeries/Procedures: removal of wisdom teeth Musculoskeletal Surgical History: Reports: None, ORIF Other Musculoskeletal Surgeries/Procedures:: ORIF right hand- pins removed Social & Family History - Family History Family Medical History: No Pertinent Family History - Caffeine Use Caffeine Use: Reports: Energy Drinks ED ROS GENERAL - Review of Systems Review Of Systems: Comprehensive ROS is negative, except as noted in HPI. ED EXAM,LOWER BACK PAIN/INJURY - Physical Exam Exam: See Below (See dictation) Course - Vital Signs Last Recorded V/S: Last Vital Signs Temp 98.1 F 02/13/21 10:27 Pulse 72 02/13/21 10:27 Resp 16 02/13/21 10:27 BP 126/66 02/13/21 10:27 Pulse Ox 100 02/13/21 10:27 - Orders/Labs/Meds Orders: Active Orders 24 hr Category Date Time Status CULTURE URINE [MREF] Stat Lab 02/13/21 10:33 Received Labs: Laboratory Tests 02/13/21 02/13/21 Range/Units 10:33 10:33 Urine Color YELLOW Urine Appearance CLEAR Urine pH 6.0 (5.0-8.0) Ur Specific [place] 1.010 (1.001-1.035) Urine Protein NEGATIVE (NEGATIVE) mg/dL Urine Glucose (UA) NEGATIVE (NEGATIVE) mg/dL Urine Ketones NEGATIVE (NEGATIVE) mg/dL Urine Occult Blood TRACE-INTACT H (NEGATIVE) Urine Nitrite NEGATIVE (NEGATIVE) Urine Bilirubin NEGATIVE (NEGATIVE) Urine Urobilinogen 0.2 (<2.0) EU/dL Ur Leukocyte Esterase SMALL H (NEGATIVE) Urine RBC 0-1 (0-2/HPF) Urine WBC 2-4 (0-5/HPF) Ur Epithelial Cells FEW (NONE-FEW) Urine Bacteria 1+ H (NEGATIVE) Urine HCG, Qual NEGATIVE (NEGATIVE) Meds: Medications Discontinued Medications Generic Name Dose Route Start Last Admin Trade Name Freq PRN Reason Stop Dose Admin Ketorolac Tromethamine 30 mg 02/13/21 10:49 02/13/21 11:02 Ketorolac 30 Mg/Ml Sdv IM 02/13/21 10:50 30 mg ONETIME ONE Administration Orphenadrine Citrate 60 mg 02/13/21 10:49 02/13/21 11:01 Orphenadrine 60 Mg/2 Ml Inj IM 02/13/21 10:50 60 mg ONETIME ONE Administration Departure - Departure Time of Disposition: 10:52 Disposition: Home, Self-Care 01 Clinical Impression: Lumbago with sciatica Qualifiers: Chronicity: acute Back pain laterality: bilateral Sciatica laterality: bilateral sciatica Qualified Code(s): M54.42 - Lumbago with sciatica, left side - Discharge Information Prescriptions: Cyclobenzaprine [Flexeril] 10 mg PO TID PRN #21 tab PRN Reason: Muscle Spasm Diclofenac Sodium [Voltaren] 75 mg PO BIDMEALS PRN #30 tab.cr PRN Reason: Pain Instructions: Muscle Strain, [id number] Referrals: Kailash De Guzman MD [Primary Care Provider] - Forms: ED Department Discharge Additional Instructions: The following information is given to patients seen in the emergency department who are being discharged to home. This information is to outline your options for follow-up care. We provide all patients seen in our emergency department with a follow-up referral. The need for follow-up, as well as the timing and circumstances, are variable depending upon the specifics of your emergency department visit. If you don't have a primary care physician on staff, we will provide you with a referral. We always advise you to contact your personal physician following an emergency department visit to inform them of the circumstance of the visit and for follow-up with them and/or the need for any referrals to a consulting specialist. The emergency department will also refer you to a specialist when appropriate. This referral assures that you have the opportunity for follow-up care with a specialist. All of these measure are taken in an effort to provide you with optimal care, which includes your follow-up. Under all circumstances we always encourage you to contact your private physician who remains a resource for coordinating your care. When calling for follow-up care, please make the office aware that this follow-up is from your recent emergency room visit. If for any reason you are refused follow-up, please contact the [facility] Emergency Department at and asked to speak to the emergency department charge nurse. [facility] [address] [place] [address] [facility] [address] [place] [address] Thank you for choosing the [facility] emergency department in [place] for your medical needs today. It was a pleasure caring for you. Today you were seen in the emergency department for back pain. 1. The medication you received today does cause drowsiness, so do not drive for the remaining day 2. When resting please lay on a flat firm surface. Limit your immobility to prevent muscle stiffness. Get up to ambulate/move around/gentle stretching multiple times throughout the day. May alternate heat and ice to the painful areas 3. Tylenol as needed for back pain. Otherwise take the prescribed Flexeril and diclofenac as directed. Diclofenac is an anti-inflammatory so do not take any additional NSAIDs with this medication, such as ibuprofen or Aleve. Flexeril as a muscle relaxant, this medication may cause drowsiness a do not take it will driving her needing to be functioning outside of the house. 4. Please follow-up with your primary care provider as we discussed. Return to the ED as needed and as discussed. Sepsis Event Note (ED) - Focused Exam Vital Signs: Vital Signs Temp Pulse Resp BP Pulse Ox 02/13/21 10:27 98.1 F 72 16 126/66 100 - My Orders Last 24 Hours: My Active Orders 02/13/21 10:33 CULTURE URINE [MREF] Stat - Assessment/Plan Last 24 Hours: My Active Orders 02/13/21 10:33 CULTURE URINE [MREF] Stat
[2021-02-13] MEDS ORDERED: Ketorolac 30 MG/ML SDV IM ONE (10:49)
[2021-02-13] MEDS ORDERED: Orphenadrine 60 MG/2 ML Inj IM ONE (10:49)
[2021-02-13 11:38] VITALS: BP 123/68; PULSE 79
== END 2021-02-13 11:38 | disposition home or self-care (01) ==
LOC: MW.ED 09:25
DX: M54.42 Lumbago with sciatica, left side (principal)
CPT/HCPCS: 81001; 81025; 87086; 96372; 99283; J1885; J2360

== ENCOUNTER 2021-06-06 07:52 | Emergency (ER) | payer BC ==
[2021-06-06] MEDS ORDERED: Ketorolac 30 MG/ML SDV IM STA (08:30)
[2021-06-06 08:51] VITALS: BP 113/74; PULSE 97
== END 2021-06-06 08:51 | disposition home or self-care (01) ==
LOC: MW.ED 07:52
DX: M54.30 Sciatica, unspecified side (principal)
CPT/HCPCS: 96372; 99283; J1885

== ENCOUNTER 2022-03-01 13:34 | Emergency (ER) | payer BC ==
[2022-03-01] MEDS ORDERED: Sodium Chloride 0.9% 10 ML Syringe FLUSH PRN (13:59)
[2022-03-01] MEDS ORDERED: Sodium Chloride 0.9% 2.5 ML Syringe FLUSH PRN (13:59)
[2022-03-01 15:17] LABS: CARBON DIOXIDE,CO2 25.3 mmol/L (21.0-32.0); POTASSIUM,K 3.8 mmol/L (3.5-5.1)
[2022-03-01] MEDS ORDERED: Iopamidol 755 MG/ML 500 ML Multipack Bottle IVPUSH STA (16:53)
[2022-03-01 17:07] VITALS: BP 127/76; PULSE 69
== END 2022-03-01 17:06 | disposition home or self-care (01) ==
LOC: MW.ED 13:34
DX: I88.0 Nonspecific mesenteric lymphadenitis (principal); Z20.822 Contact with and (suspected) exposure to COVID-19
CPT/HCPCS: 36415; 74177; 80053; 83690; 84703; 85025; 99284; Q9967

== ENCOUNTER 2022-12-13 20:44 | Emergency (ER) | payer BC ==
[2022-12-13] MEDS ORDERED: Diazepam 5 MG Tab PO ONE (21:41)
[2022-12-13] MEDS ORDERED: Ketorolac 30 MG/ML SDV IM ONE (21:41)
[2022-12-13] MEDS ORDERED: Dexamethasone 10 MG/ML SDV IM STA (21:41)
[2022-12-13 23:43] VITALS: BP 100/56; PULSE 63
== END 2022-12-13 23:43 | disposition home or self-care (01) ==
LOC: MW.ED 20:44
DX: M54.31 Sciatica, right side (principal)
CPT/HCPCS: 96372; 99283; A9270; J1100; J1885; 99284

== ENCOUNTER 2024-01-31 20:11 | Inpatient (IN) | payer BC ==
[2024-01-31] MEDS ORDERED: Phenylephrine HCl In 0.9% NaCl 1 MG/10 ML Syringe IVPUSH PRN ×2 (20:52→21:42)
[2024-01-31] MEDS ORDERED: ePHEDrine 50 MG/ML SDV IVPUSH PRN ×2 (20:52→21:42)
[2024-01-31] MEDS ORDERED: dexmedeTOMIDine HCl 200 MCG/2 ML SDV EPIDUR SCH ×2 (21:00→21:45)
[2024-01-31] MEDS ORDERED: Carboprost Tromethamine 250 MCG/1 mL Vial IM PRN (21:13)
[2024-01-31] MEDS ORDERED: Sodium Chloride 0.9% 20 ML SDV IV PRN (21:13)
[2024-01-31] MEDS ORDERED: Methylergonovine 0.2 MG/1 ML Amp IM PRN (21:13)
[2024-01-31] MEDS ORDERED: Nalbuphine 10 MG/1 ML Vial IVPUSH PRN (21:13)
[2024-01-31] MEDS ORDERED: Sodium Chloride 0.9% 2.5 ML Syringe FLUSH PRN (21:13)
[2024-01-31] MEDS ORDERED: Water For Irrigation,Sterile 1,000 ML Container IRR PRN (21:13)
[2024-01-31] MEDS ORDERED: Sodium Chloride 0.9% 10 ML Syringe FLUSH PRN (21:13)
[2024-01-31] MEDS ORDERED: Butorphanol 2 MG/ML SDV IVPUSH PRN (21:13)
[2024-01-31] MEDS ORDERED: Misoprostol 200 MCG Tab PO PRN (21:13)
[2024-01-31] MEDS ORDERED: Oxytocin/0.9 % Sodium Chloride 30 UNIT/500 ML BAG IV SCH (21:15)
[2024-01-31] MEDS ORDERED: Ropivacaine HCl/PF 400 MG in Premix Bag 1 BAG EPIDUR SCH (21:45)
[2024-01-31] MEDS: Lactated Ringers 1,000 ML IV SCH (22:03)
[2024-01-31] MEDS: Ampicillin 2 GM in Sodium Chloride 0.9% 100 ML IV ONE (22:03)
[2024-01-31 22:06] LABS: HEMATOCRIT 37.4 % (37.0-47.0); HEMOGLOBIN 12.8 g/dL (12.0-16.0); MEAN CORPUSCULAR HEMOGLOBIN 29.3 pg (28.0-32.0); MEAN CORPUSCULAR HGB CONC 34.2 g/dL (32.0-36.0); MEAN CORPUSCULAR VOLUME 85.6 fL (83.0-99.0); MEAN PLATELET VOLUME 11.2 fL (9.4-12.3); PLATELET COUNT,PLT 197 K/uL (150-400); RED BLOOD CELL COUNT 4.37 M/uL (4.10-5.30); WHITE BLOOD CELL COUNT,WBC 13.45 K/uL (3.9-11.3)
[2024-01-31] MEDS: Ropivacaine HCl/PF 400 MG in Premix Bag 1 BAG EPIDUR SCH (22:28)
[2024-02-01] MEDS: Ampicillin 1 GM in Sodium Chloride 0.9% 50 ML IV SCH (02:06)
[2024-02-01] MEDS: Oxytocin/0.9 % Sodium Chloride 30 UNIT/500 ML BAG IV SCH (04:45)
[2024-02-01] MEDS ORDERED: Terbutaline 1 MG/ML SDV SUBCUT PRN (05:38)
[2024-02-01] MEDS: Ondansetron 4 MG/2 ML SDV IVPUSH PRN (08:00)
[2024-02-01] MEDS: Lidocaine 1% 50 ML MDV INJECT PRN (12:10)
[2024-02-01] MEDS: Tranexamic Acid IN NACL,ISO-OS 1,000 MG in Premix Bag 1 BAG IV PRN (12:10)
[2024-02-01] MEDS ORDERED: Methylergonovine 0.2 MG/1 ML Amp IM PRN (13:30)
[2024-02-01 13:38] LABS: PH,UMBILICAL ARTERIAL 7.263 (7.18-7.38); PH,UMBILICAL VENOUS 7.305 (7.25-7.45)
[2024-02-01] MEDS: Witch Hazel Medicated Pads 40/Jar TOP PRN (14:06)
[2024-02-01] MEDS: Ibuprofen 800 MG Tab PO PRN (14:06)
[2024-02-01] MEDS: Lanolin 100% Cream 7 GM Tube TOP PRN (14:07)
[2024-02-01] MEDS: Benzocaine/Menthol 20%-0.5% Spray 78 GM Cannister TOP PRN (14:07)
[2024-02-01] MEDS: Docusate Sodium 100 MG Cap PO PRN (23:03)
[2024-02-01] MEDS: Acetaminophen 500 MG Tab PO PRN (23:04)
[2024-02-02 06:31] LABS: HEMATOCRIT 28.3 % (37.0-47.0); HEMOGLOBIN 9.1 g/dL (12.0-16.0)
[2024-02-02 10:11] VITALS: BP 121/63
[2024-02-02 15:49] VITALS: PULSE 82
== END 2024-02-02 15:38 | disposition home or self-care (01) | DRG 560 ==
LOC: MW.OBCHECK 20:11 → MW.OB 20:13 → MW.OBCHECK 21:13 → MW.OB 02-01 → OBSVTOIN 02-01 13:31 → MW.OB 02-01 17:04
PROVIDERS: ADMIT Obstetrics & Gynecology; ATTEND Obstetrics & Gynecology
PROC: 10E0XZZ Delivery of Products of Conception, External Approach (ICD-10-PCS; principal; 2024-02-01)
PROC: 0KQM0ZZ Repair Perineum Muscle, Open Approach (ICD-10-PCS; 2024-02-01)
PROC: 3E0R3BZ Introduction of Anesthetic Agent into Spinal Canal, Percutaneous Approach (ICD-10-PCS; 2024-02-01)
PROC: 00HU33Z Insertion of Infusion Device into Spinal Canal, Percutaneous Approach (ICD-10-PCS; 2024-02-01)
DX: O99.824 Streptococcus B carrier state complicating childbirth (principal); Z37.0 Single live birth; O77.0 Labor and delivery complicated by meconium in amniotic fluid; O70.1 Second degree perineal laceration during delivery; Z3A.41 41 weeks gestation of pregnancy; O48.0 Post-term pregnancy
CPT/HCPCS: 36415; 51702; 59025; 82803; 84112; 85014; 85018; 85027; 86592; 86850; 86900; 86901; A9270-GY; J0290; J2001; J2405; J2590; J2795; J3490; J7120